=== PATIENT | female | born 1980 | race Caucasian/White ===

== ENCOUNTER 2017-09-23 13:55 | Inpatient (IN) | payer OTHER ==
[~2017-09-23 13:55] MED LIST: AMPICILLIN - 2 GM in SODIUM CHLORIDE 100 ML IVPB ONE
[2017-09-23] MEDS ORDERED: TUBERCULIN PPD 5 TU/0.1ML SYRINGE (IN PATIENT USE ONLY) ID ONE (14:22)
[2017-09-23] MEDS: ELECTROLYTE-148 SOLN 1,000 ML IV SCH ×2 (14:50→19:30)
[2017-09-23 14:57] VITALS: BMI 36.3
[2017-09-23] MEDS ORDERED: CITRIC ACID/SODIUM CITRATE 30 ML UNIT-DOSE CUP PO ONE (15:20)
[2017-09-23 15:42] LABS: BASOPHIL 0.1 % (0-2.0); EOSINOPHIL 0.4 % (0-4.5); MCH 27.7 pg (25.7-33.7); MCHC 34.7 g/dl (32.0-36.0); MEAN CELL VOLUME 79.7 fl (80-96); NEUTROPHILS 79.2 % (42.8-82.8); PLATELET COUNT 143 K/MM3 (134-434); RDW 15.3 % (11.6-15.6); WHITE BLOOD COUNT 10.9 K/mm3 (4.0-10.0)
[2017-09-23 16:02] LABS: ANION GAP 10 (8-16); CALCIUM 8.6 mg/dL (8.5-10.1); CO2 21 mmol/L (21-32); CREATININE 0.8 mg/dL (0.55-1.02); GLUCOSE,RANDOM 92 mg/dL (74-106)
[2017-09-23 16:21] LABS: INR 0.95 (0.82-1.09); PROTHROMBIN TIME (PATIENT) 10.7 SEC (9.98-11.88)
[2017-09-23 16:24] LABS: ACTIVATED PTT 32.1 SECONDS (26.9-34.4)
[2017-09-23] MEDS ORDERED: DEXTROSE 5%-LACTATED RINGERS 1,000 ML IV SCH (16:30)
[2017-09-23 16:31] LABS: HIV 1 & 2 AB NEGATIVE; HIV 1 AGp24 NEGATIVE
[2017-09-23] MEDS ORDERED: AMPICILLIN - 100 ML IVPB ONE (19:45)
--- NOTE | 2017-09-23 20:54 | HP ---
Past Medical History - Admission Chief Complaint: Previous in labor History of Present Illness: 37 yo @ 37 weeks gestation, admitted for repeat due to complaint of labor pain. History Source: Patient Limitations to Obtaining History: No Limitations - Past Medical History ...: 3 ...Para: 1 ...Term: 1 ...: 0 ...Spon : 1 ...Induced : 0 ...Multiple Gestation: 0 ...EDC by Sono: 10/09/17 - Past Surgical History Past Surgical History: Yes: Hx Myomectomy: No Hx Transabdominal Cerclage: No - Smoking History Smoking history: Never smoked Have you smoked in the past 12 months: No - Alcohol/Substance Use Hx Alcohol Use: No History of Substance Use: reports: None - Social History Usual Living Arrangement: Yes: With Spouse History of Recent Travel: No Home Medications - Allergies Allergies/Adverse Reactions: Allergies Allergy/AdvReac Type Severity Reaction Status Date / Time No Known Drug Allergies Allergy Verified 09/23/17 14:58 wheat Allergy Severe Vomiting Uncoded 09/23/17 14:58 - Home Medications Home Medications: Ambulatory Orders Levothyroxine [Synthroid -] 88 mcg PO DAILY 08/05/14 Glyburide/Metformin HCl [Glyburide-Metformin 2.5-500 mg] 2.5 mg PO BID 08/20/17 Vit/Iron Fumarate/FA [ Tablet] 1 each PO DAILY 08/20/17 Review of Systems - Review of Systems Constitutional: reports: No Symptoms Eyes: reports: No Symptoms HENT: reports: No Symptoms Neck: reports: No Symptoms Cardiovascular: reports: No Symptoms Respiratory: reports: No Symptoms Gastrointestinal: reports: No Symptoms Genitourinary: reports: Pain Breasts: reports: No Symptoms Reported Musculoskeletal: reports: No Symptoms Integumentary: reports: No Symptoms Neurological: reports: No Symptoms Endocrine: reports: No Symptoms Hematology/Lymphatic: reports: No Symptoms Psychiatric: reports: No Symptoms Pain Intensity: 5 Physical Exam - Maternity Vital Signs: Vital Signs Temperature 99.0 F 09/23/17 19:41 Pulse Rate 99 H 09/23/17 19:41 Respiratory Rate 20 09/23/17 19:41 Blood Pressure 131/72 09/23/17 19:41 O2 Sat by Pulse Oximetry (%) Constitutional: Yes: Well Nourished Eyes: Yes: Conjunctiva Clear HENT: Yes: Atraumatic Neck: Yes: Supple Cardiovascular: Yes: Regular Rate and Rhythm Lungs: Clear to auscultation - Abdominal Exam/OB Number of Fetuses: Single Presentation: Vertex Contractions: Yes - Vaginal Exam/OB Dilatation (cm): 3-4 Effacement (%): 70 Amniotic Membrane Status: Intact Station: -2 - Physical Exam Psychiatric: Yes: Alert, Oriented - Labs Lab Results: CBC, BMP 09/23/17 14:40 09/23/17 14:40 Problem List - Problems (1) Previous section Code(s): Z98.891 - HISTORY OF UTERINE SCAR FROM PREVIOUS SURGERY (2) Status post repeat low transverse section Code(s): Z98.891 - HISTORY OF UTERINE SCAR FROM PREVIOUS SURGERY (3) Multiparity Code(s): Z64.1 - PROBLEMS RELATED TO MULTIPARITY (4) Sterilization Code(s): Z30.2 - ENCOUNTER FOR STERILIZATION Assessment/Plan Previous in labor Pre op for repeat and sterilization Consent signed Anesthesia to see patient
--- NOTE | 2017-09-23 20:54 | OP ---
Operative Note - Note: Operative Date: 09/23/17 Pre-Operative Diagnosis: Elective / Multiparity Operation: Repeat Low Transverse / Bilateral tubal ligation Findings: Baby girl in LOT position Post-Operative Diagnosis: Same as Pre-op Surgeon: Xiomara Álvarez Sales Broker: Dwayne Obrien Anesthesia: Spinal Specimens Removed: Placenta / Portion of fallopian tubes Estimated Blood Loss (mls): 700
[2017-09-23] MEDS ORDERED: ONDANSETRON 4 MG/2 ML VIAL IVPUSH PRN (21:31)
[2017-09-23] MEDS ORDERED: morphine SULFATE/Preservative Free 0.5 MG/ML (1cc Syringe) SPIN ONE (21:31)
[2017-09-23] MEDS ORDERED: METHYLERGONOVINE MALEATE 0.2 MG/1 ML AMP IM PRN (22:19)
[2017-09-23] MEDS ORDERED: IBUPROFEN 600 MG TABLET (FP) PO PRN (22:19)
[2017-09-23] MEDS ORDERED: IBUPROFEN 800 MG/8 ML IJ IVPB PRN (23:56)
[2017-09-24 08:22] LABS: BASOPHIL 0.2 % (0-2.0); EOSINOPHIL 0.2 % (0-4.5); MCH 27.3 pg (25.7-33.7); MCHC 33.8 g/dl (32.0-36.0); MEAN CELL VOLUME 80.7 fl (80-96); MEAN PLT VOLUME 9.5 fl (7.5-11.1); NEUTROPHILS 82.1 % (42.8-82.8); PLATELET COUNT 113 K/MM3 (134-434); RDW 15.3 % (11.6-15.6); WHITE BLOOD COUNT 11.8 K/mm3 (4.0-10.0)
--- NOTE | 2017-09-24 09:28 | PN ---
Progress Note (short form) - Note Progress Note: ANESTHESIA POD#1 S/P Repeat under Spinal A VSS,no N/V, moving around,some itch is still present. No complications seen, Ana Adan MD.
--- NOTE | 2017-09-24 09:33 | PN ---
Post Progress Note - Subjective Subjective: 37 yo Para 2 status post repeat , seen and evaluated. Doing well, no complaints. Post Day: 1 Type of Delivery: Repeat C/S Vital Signs: Vital Signs Temperature 98.4 F 09/24/17 09:19 Pulse Rate 112 H 09/24/17 09:19 Respiratory Rate 20 09/24/17 09:20 Blood Pressure 131/88 09/24/17 09:19 O2 Sat by Pulse Oximetry (%) 100 09/23/17 23:05 Breast Exam: Yes: Soft Uterus: Yes: Fundus Firm Incision: Yes: Dressing dry and intact Lochia: Yes: Rubra Lochia, amount: Small Extremities: Yes: Calves non-tender Perineum: Yes: Intact Activity: Other (She's lying in bed) - Labs Labs: CBC WBC 11.8 K/mm3 (4.0-10.0) H 09/24/17 07:45 RBC 4.41 M/mm3 (3.60-5.2) 09/24/17 07:45 Hgb 12.0 GM/dL (10.7-15.3) D 09/24/17 07:45 Hct 35.6 % (32.4-45.2) 09/24/17 07:45 MCV 80.7 fl (80-96) 09/24/17 07:45 MCH 27.3 pg (25.7-33.7) 09/24/17 07:45 MCHC 33.8 g/dl (32.0-36.0) 09/24/17 07:45 RDW 15.3 % (11.6-15.6) 09/24/17 07:45 Plt Count 113 K/MM3 (134-434) L D 09/24/17 07:45 MPV 9.5 fl (7.5-11.1) 09/24/17 07:45 Neutrophils % 82.1 % (42.8-82.8) 09/24/17 07:45 Lymphocytes % 11.9 % (8-40) D 09/24/17 07:45 Monocytes % 5.6 % (3.8-10.2) 09/24/17 07:45 Eosinophils % 0.2 % (0-4.5) 09/24/17 07:45 Basophils % 0.2 % (0-2.0) 09/24/17 07:45 Problem List - Problems (1) Previous section Code(s): Z98.891 - HISTORY OF UTERINE SCAR FROM PREVIOUS SURGERY (2) Status post repeat low transverse section Code(s): Z98.891 - HISTORY OF UTERINE SCAR FROM PREVIOUS SURGERY (3) Multiparity Code(s): Z64.1 - PROBLEMS RELATED TO MULTIPARITY (4) Sterilization Code(s): Z30.2 - ENCOUNTER FOR STERILIZATION Assessment/Plan Status post primary Stable Ambulation Analgesia as needed Continue post op care
[2017-09-24] MEDS ORDERED: ACETAMINOPHEN 325 MG TABLET (FP) PO PRN (12:45)
[2017-09-24] MEDS: ACETAMINOPHEN 325 MG TABLET (FP) PO PRN ×2 (16:26→20:19)
[2017-09-24] MEDS: oxyCODONE HCL 5 MG TABLET PO PRN ×2 (16:27→20:19)
[2017-09-24] MEDS: SIMETHICONE 80 MG TAB.CHEW (FP) PO PRN ×2 (16:28→20:19)
[2017-09-24] MEDS: LEVOTHYROXINE NA 75 MCG TABLET (FP) PO SCH (17:08)
[2017-09-24] MEDS: IBUPROFEN 600 MG TABLET (FP) PO PRN (20:22)
[2017-09-24] MEDS ORDERED: BISACODYL 10 MG SUPP.RECT RC PRN (22:19)
[2017-09-25] MEDS: LEVOTHYROXINE NA 75 MCG TABLET (FP) PO SCH (06:43)
[2017-09-25] MEDS: ACETAMINOPHEN 325 MG TABLET (FP) PO PRN ×3 (07:59→20:35)
[2017-09-25] MEDS: SIMETHICONE 80 MG TAB.CHEW (FP) PO PRN ×3 (08:02→20:35)
[2017-09-25] MEDS: IBUPROFEN 600 MG TABLET (FP) PO PRN ×2 (08:05→15:11)
[2017-09-25] MEDS ORDERED: FLU VACCINE QUAD 60 MCG/0.5 ML (MDV 17-18) IM ONE (10:00)
[2017-09-25] MEDS ORDERED: DIPHTH,PERTUSS(ACELL),TET 0.5 ML DISP.SYRIN IM ONE ×2 (10:00)
--- NOTE | 2017-09-25 11:55 | PN ---
Progress Note (SOAP) - Subjective Chief Complaint: Pt doing well - Current Medications Current Medications: Active Medications Acetaminophen (Tylenol -) 650 mg PO Q4H PRN PRN Reason: FEVER OR PAIN Last Admin: 09/25/17 07:59 Dose: 650 mg Acetaminophen (Tylenol -) 325 mg PO Q4H PRN PRN Reason: PAIN LEVEL 1-5 Stop: 09/27/17 12:44 Bisacodyl (Dulcolax Suppository -) 10 mg RC PRN PRN PRN Reason: CONSTIPATION Diphenhydramine HCl (Benadryl Injection -) 25 mg IVPUSH Q4H PRN PRN Reason: Pruritis Last Admin: 09/24/17 06:28 Dose: 25 mg Ibuprofen (Motrin -) 600 mg PO Q4H PRN PRN Reason: PAIN Last Admin: 09/25/17 08:05 Dose: 600 mg Ibuprofen (Caldolor Injection -) 800 mg IVPB Q6H PRN PRN Reason: FEVER Last Admin: 09/24/17 00:08 Dose: 800 mg Levothyroxine Sodium (Synthroid -) 75 mcg PO DAILY@0700 NINI Last Admin: 09/25/17 06:43 Dose: 75 mcg Methylergonovine Maleate (Methergine Injection -) 0.2 mg IM Q4H PRN PRN Reason: Excessive Bleeding (L&D) Oxycodone HCl (Roxicodone -) 5 mg PO Q4H PRN PRN Reason: PAIN LEVEL 1-5 Last Admin: 09/24/17 20:19 Dose: 5 mg Simethicone (Mylicon -) 80 mg PO Q4H PRN PRN Reason: GAS Last Admin: 09/25/17 08:02 Dose: 80 mg - Objective Vital Signs: Vital Signs Temperature 98.8 F 09/25/17 10:00 Pulse Rate 99 H 09/25/17 10:00 Respiratory Rate 16 09/25/17 10:00 Blood Pressure 121/81 09/25/17 10:00 O2 Sat by Pulse Oximetry (%) 100 09/23/17 23:05 Constitutional: Yes: Well Nourished, No Distress Neck: Yes: WNL Cardiovascular: Yes: WNL Respiratory: Yes: WNL Gastrointestinal: Yes: WNL, Normal Bowel Sounds, Soft ....Post : Yes: Uterus firm, Uterus non-tender Extremities: Yes: WNL Edema: No Wound/Incision: Yes: Clean/Dry, Well Approximated Neurological: Yes: WNL, Alert, Oriented Labs Lab Results: CBC, BMP 09/24/17 07:45 09/23/17 14:40 Problem List - Problems (1) Status post repeat low transverse section Code(s): Z98.891 - HISTORY OF UTERINE SCAR FROM PREVIOUS SURGERY Assessment/Plan SP CS for repeat CS POD 2 Plan Continue present management
--- NOTE | 2017-09-25 15:51 | PN ---
Progress Note (short form) - Note Progress Note: Called by nurse to evaluate patient due to oozing from the the incision. Came to evaluate patient; there was some mild oozing on the right side of the incision. Sterile strips removed, wound cleaned with saline solution and sterile strips replaced and pressure dressing applied. Patient tolerated procedure well. Problem List - Problems (1) Previous section Code(s): Z98.891 - HISTORY OF UTERINE SCAR FROM PREVIOUS SURGERY (2) Status post repeat low transverse section Code(s): Z98.891 - HISTORY OF UTERINE SCAR FROM PREVIOUS SURGERY (3) Multiparity Code(s): Z64.1 - PROBLEMS RELATED TO MULTIPARITY (4) Sterilization Code(s): Z30.2 - ENCOUNTER FOR STERILIZATION
[2017-09-25] MEDS: oxyCODONE HCL 5 MG TABLET PO PRN (20:35)
[2017-09-26] MEDS: IBUPROFEN 600 MG TABLET (FP) PO PRN (01:05)
[2017-09-26] MEDS: ACETAMINOPHEN 325 MG TABLET (FP) PO PRN ×4 (01:05→21:08)
[2017-09-26] MEDS: oxyCODONE HCL 5 MG TABLET PO PRN ×4 (01:06→21:07)
[2017-09-26] MEDS: LEVOTHYROXINE NA 75 MCG TABLET (FP) PO SCH (06:02)
--- NOTE | 2017-09-26 07:27 | PN ---
Progress Note (SOAP) - Subjective Chief Complaint: Pt ding well - Current Medications Current Medications: Active Medications Acetaminophen (Tylenol -) 650 mg PO Q4H PRN PRN Reason: FEVER OR PAIN Last Admin: 09/26/17 01:05 Dose: 650 mg Acetaminophen (Tylenol -) 325 mg PO Q4H PRN PRN Reason: PAIN LEVEL 1-5 Stop: 09/27/17 12:44 Bisacodyl (Dulcolax Suppository -) 10 mg RC PRN PRN PRN Reason: CONSTIPATION Diphenhydramine HCl (Benadryl Injection -) 25 mg IVPUSH Q4H PRN PRN Reason: Pruritis Last Admin: 09/24/17 06:28 Dose: 25 mg Ibuprofen (Motrin -) 600 mg PO Q4H PRN PRN Reason: PAIN Last Admin: 09/26/17 01:05 Dose: 600 mg Ibuprofen (Caldolor Injection -) 800 mg IVPB Q6H PRN PRN Reason: FEVER Last Admin: 09/24/17 00:08 Dose: 800 mg Levothyroxine Sodium (Synthroid -) 75 mcg PO DAILY@0700 NINI Last Admin: 09/26/17 06:02 Dose: 75 mcg Methylergonovine Maleate (Methergine Injection -) 0.2 mg IM Q4H PRN PRN Reason: Excessive Bleeding (L&D) Oxycodone HCl (Roxicodone -) 5 mg PO Q4H PRN PRN Reason: PAIN LEVEL 1-5 Last Admin: 09/26/17 01:06 Dose: 5 mg Simethicone (Mylicon -) 80 mg PO Q4H PRN PRN Reason: GAS Last Admin: 09/25/17 20:35 Dose: 80 mg - Objective Vital Signs: Vital Signs Temperature 98.3 F 09/25/17 20:49 Pulse Rate 98 H 09/25/17 20:49 Respiratory Rate 20 09/25/17 20:49 Blood Pressure 121/65 09/25/17 20:49 O2 Sat by Pulse Oximetry (%) 100 09/23/17 23:05 Constitutional: Yes: Well Nourished, No Distress Cardiovascular: Yes: WNL Respiratory: Yes: WNL Gastrointestinal: Yes: WNL, Normal Bowel Sounds, Soft ....Post : Yes: Uterus firm, Uterus non-tender Musculoskeletal: Yes: WNL Extremities: Yes: WNL Wound/Incision: Yes: Clean/Dry, Well Approximated, Open to air Neurological: Yes: WNL, Alert, Oriented Labs Lab Results: CBC, BMP 09/24/17 07:45 09/23/17 14:40 Problem List - Problems (1) Status post repeat low transverse section Code(s): Z98.891 - HISTORY OF UTERINE SCAR FROM PREVIOUS SURGERY Assessment/Plan SP CS for repeat CS POD 3 Plan Continue present management
[2017-09-26] MEDS: SIMETHICONE 80 MG TAB.CHEW (FP) PO PRN ×3 (08:30→21:07)
[2017-09-26 08:46] LABS: BASOPHIL 0.2 % (0-2.0); EOSINOPHIL 1.5 % (0-4.5); MCH 27.3 pg (25.7-33.7); MCHC 33.8 g/dl (32.0-36.0); MEAN CELL VOLUME 80.8 fl (80-96); MEAN PLT VOLUME 9.1 fl (7.5-11.1); NEUTROPHILS 74.9 % (42.8-82.8); PLATELET COUNT 155 K/MM3 (134-434); RDW 15.8 % (11.6-15.6); WHITE BLOOD COUNT 8.5 K/mm3 (4.0-10.0)
[2017-09-26] MEDS ORDERED: diphenhydrAMINE HCL 25 MG CAPSULE (FP) PO ONE ×2 (12:03→12:45)
[2017-09-26] MEDS: HYDROCORTISONE 1% TOPICAL CREAM 30 GM TUBE TP SCH (21:38)
[2017-09-27] MEDS: SIMETHICONE 80 MG TAB.CHEW (FP) PO PRN (01:53)
[2017-09-27] MEDS: oxyCODONE HCL 5 MG TABLET PO PRN (01:53)
[2017-09-27] MEDS: IBUPROFEN 600 MG TABLET (FP) PO PRN (01:57)
[2017-09-27] MEDS: LEVOTHYROXINE NA 75 MCG TABLET (FP) PO SCH (06:08)
--- NOTE | 2017-09-27 08:50 | DS ---
Physical Exam-SPEEDER OPERATOR Vital Signs: Vital Signs Temperature 98.1 F 09/26/17 22:00 Pulse Rate 106 H 09/26/17 22:00 Respiratory Rate 18 09/26/17 22:00 Blood Pressure 107/63 09/26/17 22:00 O2 Sat by Pulse Oximetry (%) 100 09/23/17 23:05 Constitutional: Yes: Well Nourished Eyes: Yes: Conjunctiva Clear HENT: Yes: Atraumatic Neck: Yes: Supple Cardiovascular: Yes: Regular Rate and Rhythm Respiratory: Yes: Regular, CTA Bilaterally Gastrointestinal: Yes: Normal Bowel Sounds Pelvis: Yes: WNL External Genitalia: Yes: Normal Vaginal Exam: Yes: Normal Cervix: Yes: Normal Uterus: Yes: Firm Breast(s): Yes: WNL Wound/Incision: Yes: Clean/Dry, Steri Strips (in place). No: Bleeding Neurological: Yes: Alert, Oriented ...Motor Strength: WNL Psychiatric: Yes: Alert, Oriented Labs: CBC, BMP 09/26/17 07:00 09/23/17 14:40 Delivery - Delivery Type of Anesthesia: Spinal Episiotomy/Laceration: None EBL (cc): 700 Delivery, Single - Stages of Labor Date 1st Stage Initiatied: 09/23/17 Time 1st Stage Initiated: 13:00 Date of Delivery: 09/23/17 Time of Delivery: 21:16 Time Placenta Delivered: 21:17 - Condition of Press Writer/V/Stol Landing Signal Officer Present: Yes Name: Jose Powell Infant Gender: Female Weight: 8 lb 9 oz Position: Left, OT Total Hours ROM (Hrs/Mins): 2min - 1 Minute Total Score: 9 5 Minutes Total Score: 9 - [place] Feeding Plan Initial Plan: Elected not to breastfeed exclusively throughout hospitalization Discharge Summary Reason For Visit: ADMIT PREVIOUS CSECTION Current Active Problems Multiparity (Acute) Previous section (Acute) Status post repeat low transverse section (Acute) Sterilization (Acute) Procedures: Principal: Repeat Low transverse Hospital Course: 37 yo Para 2 status post repeat admitted for post op care. While in hospital dressing was changed because of oozing and hydrocortizone cream was prescribed for skin itch. Condition: Good - Instructions Diet, Activity, Other Instructions: Regular diet No driving, no lifting x 4 weeks F/U with in 1 week Disposition: HOME - Home Medications Comprehensive Discharge Medication List: Ambulatory Orders Levothyroxine [Synthroid -] 88 mcg PO DAILY 08/05/14 Glyburide/Metformin HCl [Glyburide-Metformin 2.5-500 mg] 2.5 mg PO BID 08/20/17 Vit/Iron Fumarate/FA [ Tablet] 1 each PO DAILY 08/20/17
[2017-09-27 09:00] VITALS: BP 119/74; PULSE 74; TEMP 98.4
[2017-09-27] MEDS: HYDROCORTISONE 1% TOPICAL CREAM 30 GM TUBE TP SCH (10:27)
--- NOTE | 2017-09-30 17:41 | PATH ---
Surgical Pathology Report Patient Name: SUMIT FIGUEROA [facility]. Rec. #: [id number] /Age/Gender: 1980 (Age: 37) / F Account: [id number] Location: [facility] OBS/WELLNESS CONSULTANT Taken: 09/23/2017 Received: 09/24/2017 Reported: 09/30/2017 Physicians: Xiomara Álvarez M.D. 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 PLACENTA, : MATURE THIRD TRIMESTER PLACENTA WITH TRIVESSEL UMBILICAL CORD. MILD ACUTE CHORIOAMNIONITIS. B. PORTION OF RIGHT FALLOPIAN TUBE, TUBAL LIGATION: COMPLETE CROSS SECTION OF FALLOPIAN TUBE. C. PORTION OF LEFT FALLOPIAN TUBE, TUBAL LIGATION: COMPLETE CROSS SECTION OF FALLOPIAN TUBE. Electronically Signed Jia Khalil M.D. Gross Description A. The specimen is received fresh labeled placenta and is a 806 gram, 23.0 x 16.5 x 2.8 cm. placenta with attached membranes and umbilical cord. The attached membranes are rainey, translucent with focal opacities and insert marginally. The umbilical cord measures 45 cm. in length and averages 1.6 cm. in diameter. The cord inserts eccentrically, 3.5 cm. to the nearest margin. No true knots or strictures are identified. Cut surface of the umbilical cord reveals 3 vessels. The surface is hills-blue with minimal fibrin deposition and appropriate caliber vessels. The maternal surface is red-brown with focal defects. Sectioning reveals red-brown, spongy parenchyma. No lesions are identified. Magnetometer Operator sections are submitted in three cassettes as follows: 1- membrane rolls and umbilical cord; 2-3- full thickness sections of placenta. B. received in formalin labeled "portion of right fallopian tube," is a 1 cm in length portion of fallopian tube. No fimbria are present. The outer surface is rainey-grady and smooth. Sectioning reveals an unremarkable lumen. Magnetometer Operator sections are submitted in one cassette. C. Received in formalin labeled "portion of left fallopian tube," is a 0.8 cm in length portion of fallopian tube. No fimbria are present. The outer surface is rainey hills and smooth. Sectioning reveals an unremarkable lumen. Magnetometer Operator sections are submitted in one cassette. 09/26/201709/26/2017
== END 2017-09-27 11:50 | disposition home or self-care (01) | DRG 540 ==
LOC: JDEL 13:55 → JLDR 13:56 → J3W 23:49
PROVIDERS: ADMIT Obstetrics & Gynecology; ATTEND Obstetrics & Gynecology
PROC: 10D00Z1 Extraction of Products of Conception, Low, Open Approach (ICD-10-PCS; principal; 2017-09-23)
PROC: 0U570ZZ Destruction of Bilateral Fallopian Tubes, Open Approach (ICD-10-PCS; 2017-09-23)
DX: O24.415 Gestational diabetes mellitus in pregnancy, controlled by oral hypoglycemic drugs (principal); O34.211 Maternal care for low transverse scar from previous cesarean delivery; Z3A.37 37 weeks gestation of pregnancy; Z37.0 Single live birth; Z30.2 Encounter for sterilization
CPT/HCPCS: 36415; 80048; 85025; 85610; 85730; 86593; 86850; 86900; 86901; 87389; 88302-TC; 88307-TC; 90688; 90715; G0008

== ENCOUNTER 2019-07-20 11:12 | Day surgery (SDC) | payer OTHER ==
[2019-07-14 13:30] VITALS: BMI 32.1
[2019-07-20] MEDS ORDERED: MIDAZOLAM HCL 2 MG/2 ML SINGLE DOSE VIAL ONE (12:29)
[2019-07-20] MEDS ORDERED: DEXAMETHASONE SOD PHOSPHATE/PF 10 MG/ML SDV ONE (12:29)
[2019-07-20] MEDS ORDERED: ROPIVACAINE HCL 0.5% 30ML VIAL ONE (12:29)
[2019-07-20] MEDS ORDERED: PROPOFOL 20 ML ONE ×2 (12:53→13:27)
[2019-07-20] MEDS ORDERED: EPINEPHrine 1:1,000 1 MG/1 ML - 30ML VIAL (INJECTION) ONE (14:33)
[2019-07-20] MEDS ORDERED: ceFAZolin SODIUM 1 GM VIAL ONE (14:38)
[2019-07-20] MEDS ORDERED: oxyCODONE HCL 5 MG TABLET PO PRN ×3 (16:14→16:41)
[2019-07-20] MEDS ORDERED: PROMETHAZINE HCL 25 MG/1 ML VIAL IVPUSH PRN (16:14)
[2019-07-20] MEDS ORDERED: ONDANSETRON 4 MG/2 ML VIAL IVPUSH PRN (16:14)
--- NOTE | 2019-07-20 16:50 | OPR ---
Date of Procedure: 07/20/2019 Procedure: Left Shoulder- 1. Diagnostic arthroscopy. 2. Arthroscopic limited debridement of glenohumeral joint (18553). 3. Arthroscopic subacromial decompression (55031). 4. Distal clavicle resection (09074, append 51 modifier). Preoperative Diagnoses: 1. AC joint arthrosis. 2. Glenohumeral synovitis. 3. Subacromial bursitis. 4. Biceps tendonitis Postoperative Diagnoses: 1. AC joint arthrosis 2. Labral degeneration and fraying; SLAP tear. 4. Glenohumeral synovitis. 6. Subacromial bursitis and adhesions. Surgeon: Lawrence Dalton DO Assistants: Adams Zarate DO Anesthesia: General anesthesia, IV regional with interscalene nerve block Estimated Blood Loss: Minimal Drains: None Total IV Fluids: Per anesthesia record Specimens: None Implants: None Complications: None Disposition: PACU Condition: Hemodynamically stable Indications: Shereen Marte presented to us with chronic left shoulder pain that failed conservative measures, including regular use of ibuprofen, a cortisone injection, and multiple courses of physical therapy. Her symptoms, signs, and imaging were consistent with the above noted diagnoses. She ultimately elected to proceed with surgical intervention after discussion of the risks, benefits, alternatives. We discussed risks including but not limited to, bleeding, pain, infection, scarring, damage to neurovascular structures, blood clots, pulmonary embolus, need for additional surgery, incomplete relief of pain, and incomplete return of function. She expressed understanding and wished to proceed. She underwent preoperative medical evaluation clearance and optimization prior to surgery. Procedure Details: The patient was identified in the preoperative area. The left shoulder was marked as the operative site and consent was completed and confirmed. She was later transferred to the operating room and placed in supine position the operating room. General anesthesia was induced without difficulty. She was repositioned into beach chair with all bony prominences appropriately padded. The neck was in neutral alignment. A surgical time-out was performed identifying the correct patient, procedure, and site. Antibiotics were given within 1 hour prior to surgical incision. The upper extremity was prepped and draped in standard sterile fashion. Examination under anesthesia: Passive range of motion of the left shoulder showed forward elevation of 170, abduction 100, external rotation at side 60 , SABER 90, SABIR 40. This was compared to her contralateral shoulder which shows forward elevation of 170, abduction 100 external rotation at side 60, SABER 90, SABIR 40, and internal rotation to her mid thoracic spine. Diagnostic arthroscopy: We began the procedure with the standard posterolateral portal, entered the glenohumeral joint, and an anterior portal was made within the rotator cuff interval under direct visualization with the assistance of a spinal needle. A probe was used to assist with diagnostic arthroscopy and we visualized from both posteriorly and anteriorly. Evaluation of the glenohumeral joint showed mild to moderate synovitis anteriorly. The superior labrum had a degenerative tear that was debrided back to a stable base. The anterior labrum was probed and found to be frayed, but intact. The posterior labrum was probed and found to be intact. There were no loose bodies in the inferior pouch. There was no HAGL lesion. The biceps tendon was normal. The rotator cuff interval was normal. The axillary recess was empty. The subscapularis was probed and found to be intact. The articular surface of the supraspinatus was intact. The articular surface of the infraspinatus and teres minor tendons were intact. The glenoid and humeral head showed no significant chondral defects. Evaluation of the subacromial space showed moderate bursitis and adhesions. There was a small acromial spur and calcific body anteriorly. There was fraying of the CA ligament. The AC joint was intact with spurring and loss of the joint space. The rotator cuff was found to be intact. Arthroscopic limited debridement of the glenohumeral joint: We used a combination of the arthroscopic motorized shaver and radiofrequency device to perform a debridement inside the glenohumeral joint. The synovitis of the joint and joint capsule was debrided anteriorly. Synovitic fronds were thermally ablated. Labral fraying and degeneration was also resected and debrided to a stable edge. Arthroscopic subacromial decompression:The subacromial space was entered from posteriorly. A separate anterior-lateral portal was made for additional instrumentation and visualization. We then visualized the rotator cuff pattern as noted above, and performed our subacromial decompression in a systematic fashion from anterior to posterior and from lateral to medial, removing the bursal tissue carefully. This was done with a radiofrequency device and motorized shaver. The undersurface of the acromion was skeletonized and gently debrided to a flat smooth undersurface. There was a small anterior-inferior spur that was resected with a motorized bur. There was a small calcific loose body at the anterior aspect of the acromion which was excised. Arthroscopic AC joint resection: The AC joint space was narrowed, with arthritic changes including kay-articular spurs and sclerosis. We used the anterior and lateral portals for instrumentation. Soft tissue within the AC joint was removed with a motorized shaver and radiofrequency device. We resected the joint by using a barrel jaja 4 mm in diameter. 2-3 mm of the medial aspect of the acromion was burred to a flat surface and about 6-7 mm of the lateral end of the clavicle was similarly resected with the jaja. The surrounding osteophytes were also resected. The AC joint was stable upon completion of the distal clavicleexcision. Approximately 1 cm of space was present between the acromion and clavicle after the resection. Wound closure: The arthroscopic portal incisions were closed with 3-0 Monocryl subcuticular stitch with Steri strips. The shoulder was sterilely dressed, and placed in a shoulder immobilizer. Post-operative Details: I spoke with the family regarding the operation after surgery. Postoperative rehabilitation: Arthroscopic subacromial decompression protocol. She will remain in a sling for 1-2 weeks. Early passive range of motion okay with no limits and advance as tolerated. No strengthening until full painless range of motion restored. Attestation for first grade teacher: Dr. Adams Zarate DO acted as the first grade teacher. There was no qualified resident or physician customer support assistant available to do so.
[2019-07-20 17:09] VITALS: TEMP 97.7
[2019-07-20 17:44] VITALS: BP 125/70; PULSE 96
--- NOTE | 2019-07-24 12:51 | PATH ---
Surgical Pathology Report Patient Name: SUMIT FIGUEROA Med. Rec. #: [id number] /Age/Gender: 1980 (Age: 39) / F Account: [id number] Location: [facility] Taken: 07/20/2019 Received: 07/21/2019 Reported: 07/24/2019 Physicians: Lawrence Dalton DO Specimen(s) Received A: SHAVINGS LEFT SHOULDER B: LEFT SHOULDER LOOSE BODY Clinical History Left shoulder distal clavicle resection with debridement Final Diagnosis A. LEFT SHOULDER SHAVINGS: FEW FRAGMENTS OF FIBROCARTILAGINOUS TISSUE AND SKELETAL MUSCLE WITH NO SIGNIFICANT PATHOLOGIC CHANGE. B. LEFT SHOULDER, LOOSE BODY, EXCISION: PORTION OF BONE WITH TRILINEAGE HEMATOPOIETIC MARROW. SEE COMMENT. Comment: This may represent a loose body in the proper clinical setting. Electronically Signed Dariel Arteaga M.D. Gross Description A. Received in formalin, labeled "left shoulder shavings" is scant possible tissue measuring < 1 mm. the contents of the container are strained and the possible tissue fragment. Entirely submitted in one cassette. Note: tissue may fail to process. B. Received in formalin, labeled "left shoulder loose body" is a 0.8 x 0.4 x 0.3 cm portion of bony tissue. The specimen is decalcified and entirely submitted in one cassette. AE/07/23/2019 ebram/07/23/2019
== END 2019-07-20 17:45 | disposition home or self-care (01) ==
LOC: FASU 11:12
PROVIDERS: ATTEND Orthopaedic Surgery
PROC: 0RNK4ZZ Release Left Shoulder Joint, Percutaneous Endoscopic Approach (ICD-10-PCS; 2019-07-20)
PROC: 0PBB4ZZ Excision of Left Clavicle, Percutaneous Endoscopic Approach (ICD-10-PCS; principal; 2019-07-20 14:56)
DX: M19.012 Primary osteoarthritis, left shoulder (principal); S43.432A Superior glenoid labrum lesion of left shoulder, initial encounter; X58.XXXA Exposure to other specified factors, initial encounter; Y93.9 Activity, unspecified; Y92.9 Unspecified place or not applicable; M65.812 Other synovitis and tenosynovitis, left shoulder; M75.52 Bursitis of left shoulder; M75.02 Adhesive capsulitis of left shoulder
CPT/HCPCS: 84703; 88304-TC; 94760

== ENCOUNTER 2020-06-17 06:36 | Day surgery (SDC) | payer OTHER ==
[2020-05-30 14:43] VITALS: BMI 32.3
[~2020-06-17 06:36] MED LIST changes: -AMPICILLIN - 2 GM in SODIUM CHLORIDE 100 ML IVPB ONE; +BUPIVACAINE HCL/PF 0.25% (2.5MG/ML) 10 ML VIAL IJ ONE
[2020-06-17] MEDS ORDERED: SODIUM CHLORIDE 0.9% P/F 10 ML VIAL IJ ONE (06:57)
[2020-06-17] MEDS ORDERED: ceFAZolin SODIUM 1 GM VIAL ONE (06:57)
[2020-06-17] MEDS ORDERED: PROPOFOL 20 ML ONE (06:58)
[2020-06-17] MEDS ORDERED: DEXAMETHASONE SOD PHOSPHATE 4 MG/1 ML VIAL ONE ×2 (07:01→08:53)
[2020-06-17] MEDS ORDERED: SUCCINYLCHOLINE CHLORIDE 200 MG/10 ML SYRINGE ONE (07:03)
[2020-06-17] MEDS ORDERED: EPHEDRINE SULFATE/0.9% NACL/PF 50 MG/10 ML SYRINGE NR ONE (07:03)
--- NOTE | 2020-06-17 07:20 | HP ---
History & Physical Update - History History: Change (see notes) (Ear infection resolved) - Physical Physical: No Change - Assessment Assessment: No Change - Plan Plan: No Change
[2020-06-17] MEDS ORDERED: oxyCODONE HCL 5 MG TABLET PO PRN ×3 (07:25→08:16)
[2020-06-17] MEDS ORDERED: ONDANSETRON 4 MG/2 ML VIAL IVPUSH PRN (07:25)
[2020-06-17] MEDS ORDERED: LACTATED RINGERS SOLUTION 1,000 ML IV SCH (07:30)
[2020-06-17] MEDS ORDERED: ACETAMINOPHEN 325 MG TABLET (FP) PO PRN (08:16)
[2020-06-17] MEDS ORDERED: MIDAZOLAM HCL 2 MG/2 ML SINGLE DOSE VIAL ONE (08:20)
[2020-06-17] MEDS ORDERED: ROPIVACAINE HCL 0.5% 30ML VIAL ONE (08:20)
[2020-06-17] MEDS ORDERED: EPINEPHrine 1:1,000 1 MG/1 ML - 30ML VIAL (INJECTION) ONE (08:24)
[2020-06-17] MEDS ORDERED: BUPIVACAINE HCL/PF 0.25% (2.5MG/ML) 10 ML VIAL ONE ×2 (08:32→10:33)
[2020-06-17] MEDS ORDERED: METOPROLOL TARTRATE 5 MG/5 ML VIAL ONE (08:55)
[2020-06-17] MEDS ORDERED: PHENYLEPHRINE HCL 10 MG/1 ML SINGLE DOSE VIAL ONE (09:03)
[2020-06-17] MEDS ORDERED: KETOROLAC TROMETHAMINE 30 MG/1 ML VIAL ONE (09:22)
[2020-06-17] MEDS ORDERED: ONDANSETRON 4 MG/2 ML VIAL ONE (09:22)
[2020-06-17] MEDS ORDERED: BUPIVACAINE HCL/PF 0.25% (2.5MG/ML) 10 ML VIAL IJ ONE ×2 (09:35)
--- NOTE | 2020-06-17 10:58 | OPR ---
Procedure: Left Shoulder- 1. Diagnostic arthroscopy. 2. Arthroscopic limited debridement of glenohumeral joint (86092). 3. Arthroscopic subacromial decompression (84757). 4. Arthroscopic-assisted biceps tenodesis-subpectoral (17086). 5. Distal clavicle resection (13878, append 51 modifier). Preoperative Diagnoses: Left Shoulder- 1. Biceps tendon degeneration. 2. Glenohumeral synovitis. 3. Subacromial bursitis. 4. AC joint arthropathy. Postoperative Diagnoses: Left Shoulder- 1. Rotator cuff partial tear/fraying-Supraspinatus. 2. Biceps tendon degeneration and tenosynovitis. 3. Glenohumeral synovitis. 4. Subacromial bursitis and adhesions. 5. AC joint arthropathy. Surgeon: Lawrence Dalton DO Assistants: Adams Zarate DO Anesthesia: IV regional with interscalene nerve block, Local infiltration analgesic with Bupivacaine. Estimated Blood Loss: Minimal Drains: None Total IV Fluids: Per anesthesia record Specimens: None Implants: [employer] 1.9mm SutureFix [place], Double loaded with Suture Complications: None Disposition: PACU Condition: Hemodynamically stable Indications: Shereen Marte presented to us with chronic left shoulder pain that failed conservative measures and a prior arthroscopic surgery. Her symptoms, signs, and imaging were consistent with the above noted diagnoses. She ultimately elected to proceed with surgical intervention after discussion of the risks, benefits, alternatives. We discussed risks including but not limited to, bleeding, pain, infection, scarring, damage to neurovascular structures, blood clots, pulmonary embolus, need for additional surgery, incomplete relief of pain, and incomplete return of function. She expressed understanding and wished to proceed. She underwent preoperative medical evaluation clearance and optimization prior to surgery. Procedure Details: She was identified in the preoperative area. The left shoulder was marked as the operative site and consent was completed and confirmed. An interscalene block was performed in the preoperative holding area by a member of the anesthesia team. She was later transferred to the operating room and placed in supine position the operating room. Anesthesia was induced without difficulty. She was repositioned into beach chair with all bony prominences appropriately padded. The neck was in neutral alignment. A surgical time-out was performed identifying the correct patient, procedure, and site. Antibiotics were given within 1 hour prior to surgical incision. The upper extremity was prepped and draped in standard sterile fashion. Examination under anesthesia: Passive range of motion of the left shoulder showed forward elevation of 170, abduction 100, external rotation at side 60, SABER 90, SABIR 40. This was compared to her contralateral shoulder which shows forward elevation of 170, abduction 100 external rotation at side 40, SABER 90, SABIR 40, and internal rotation to her mid thoracic spine. Diagnostic arthroscopy: We began the procedure with the standard posterolateral portal, entered the glenohumeral joint, and an anterior portal was made within t he rotator cuff interval under direct visualization with the assistance of a spinal needle. A probe was used to assist with diagnostic arthroscopy and we visualized from both posteriorly and anteriorly. Evaluation of the glenohumeral joint showed mild to moderate synovitis anteriorly and superiorly. The superior labrum was probed and found to be intact frayed and torn from the superior glenoid, consistent with a grade II SLAP tear. The anterior labrum was probed and found to be intact. The posterior labrum was probed and found to be intact. There were no loose bodies in the inferior pouch. There was no HAGL lesion. The biceps tendon showed hyperemia. The rotator cuff interval showed hyperemia. The axillary recess was empty. The subscapularis was probed and found to be intact. The articular surface of the supraspinatus was frayed. The articular surface of the infraspinatus and teres minor tendons were intact. The glenoid and humeral head showed no significant chondral defects. There was a small areas of grade I chondromalacia noted on the humeral head. We used a combination of the arthroscopic motorized shaver and radiofrequency device to perform an debridement inside the glenohumeral joint anteriorly. The hyperemia, erythema, and synovitis of the joint and joint capsule was debrided. Synovitic fronds were thermally ablated. The biceps tendon was tenotomized as it inserted into the superior labral complex and the remaining portion of the biceps tendon was allowed to retract into the bicipital groove for later tenodesis. Evaluation of the subacromial space showed moderate bursitis and adhesions. There was no acromial spur anteriorly. There was fraying of the CA ligament. The AC joint was showed areas of new heterotopic bone formation and sclerosis. The bursal surface of the rotator cuff was found to be intact. Arthroscopic-assisted biceps tenodesis: We made a 2 cm incision along Himanshu's lines in the axillary fold. Sharp dissection was carried out down to the level of the pectoralis major. The plane between the pectoralis major and the short head of biceps tendon was developed bluntly down to the level of the humeral bone, where we identified the long head of biceps tendon and delivered it retrograde out of the wound. The underlying soft tissue was resected and the bone was frayed with a 1/4-inch osteotome. We then selected a 1.9 SutureFix anchor and placed the anchor high within the bicipital groove underneath the pectoralis major tendon. The sutures were then passed just proximal to the musculotendinous junction of the long head of biceps in an alternating simple versus lasso loop configuration. Tying these sutures down tenodesed the tendon onto the underlying frayed humeral bone. We used an arthroscopic knot pusher to get excellent knot fixation, and then arthroscopic cutter hot knife to cut the remaining length of the suture. The remaining length of the biceps tendon was resected. We confirmed our arthroscopic knots and position of the biceps tendon underneath the pectoralis major with the arthroscope. We thoroughly irrigated the wound. Arthroscopic subacromial decompression:The subacromial space was entered from posteriorly. A separate anterior-lateral portal was made for additional instrumentation and visualization. We then performed our subacromial decompression in a systematic fashion from anterior to posterior and from latera l to medial, removing the bursal tissue carefully. This was done with a radiofrequency device and motorized shaver. The undersurface of the acromion was skeletonized and gently debrided to a flat smooth undersurface. There was a no significant anterior inferior acromial spur. Arthroscopic AC joint resection: The AC joint space was narrowed superiorly, with kay-articular heterotopic bone formation and sclerosis . We used the anterior and lateral portals for instrumentation. Soft tissue within the AC joint was removed with a motorized shaver and radiofrequency device. We resected the joint by using a barrel jaja 4 mm in diameter. 2-3 mm of the medial aspect of the acromion was burred to a flat surface and about 6-7 mm of the lateral end of the clavicle was similarly resected with the jaja. The surrounding osteophytes were also resected. The AC joint was stable upon completion of the distal clavicle excision. Approximately 1 cm of space was present between the acromion and clavicle after the resection. We thoroughly irrigated the subacromial space and we removed the arthroscopic equipment. Wound closure: The wounds were thoroughly irrigated. The arthroscopic portal incisions were closed with 3-0 Monocryl subcuticular stitch with Steri strips. The axillary incision was closed with 2-0 Vicryl, 3-0 Monocryl subcuticular stitch, and Dermabond skin glue. The shoulder was sterilely dressed and placed in a shoulder immobilizer. Post-operative Details: I spoke with the family regarding the operation after surgery. Postoperative rehabilitation: Arthroscopic biceps tenodesis protocol. She will remain in a sling for 4-6 weeks. Early passive range of motion okay with no limits. Attestation for dietary assistant: Dr. Adams Zarate acted as the dietary assistant. There was no qualified resident or physician respiratory therapy assistant available to do so. I was present for surgical time out and all trujillo and critical portions of the case.
[2020-06-17 13:55] VITALS: BP 109/76; PULSE 100; TEMP 98
--- NOTE | 2020-06-21 16:15 | PATH ---
Surgical Pathology Report Patient Name: SUMIT FIGUEROA Med. Rec. #: [id number] /Age/Gender: 1980 (Age: 39) / F Account: [id number] [facility] Taken: 06/17/2020 Received: 06/17/2020 Reported: 06/21/2020 Physicians: Lawrence Dalton DO Specimen(s) Received A: LEFT SHOULDER SHAVINGS B: LEFT BICEP TENDON Clinical History Left shoulder bursitis/biceps tendinitis Final Diagnosis A. LEFT SHOULDER SHAVINGS: PORTIONS OF SYNOVIAL TISSUE WITH FOCAL REACTIVE CHANGE. SEPARATE SKELETAL MUSCLE WITH NO SIGNIFICANT PATHOLOGIC CHANGE. B. LEFT BICEP TENDON, RESECTION TENDINOUS TISSUE WITH FOCAL DEGENERATIVE CHANGE. Electronically Signed Dariel Arteaga M.D. Gross Description A. Received in formalin labeled "left shoulder shavings," is a 2.5 x 1.5 x 0.3 cm aggregate of rainey-yellow soft tissue fragments. The formalin is filtered and the specimen is entirely submitted in one cassette. B. Received in formalin labeled "left biceps tendon," is a 5.0 x 0.5 x 0.3 cm rainey-brown portion of fibrous tissue, consistent with a portion of tendon. [employer] sections are submitted in one cassette. /06/17/2020 saudi06/17/2020
== END 2020-06-17 13:50 | disposition home or self-care (01) ==
LOC: FASU 06:36
PROVIDERS: ATTEND Orthopaedic Surgery
PROC: 0LS44ZZ Reposition Left Upper Arm Tendon, Percutaneous Endoscopic Approach (ICD-10-PCS; 2020-06-17)
PROC: 0LS40ZZ Reposition Left Upper Arm Tendon, Open Approach (ICD-10-PCS; 2020-06-17)
PROC: 0PBB4ZZ Excision of Left Clavicle, Percutaneous Endoscopic Approach (ICD-10-PCS; principal; 2020-06-17 09:10)
PROC: 0RBK4ZZ Excision of Left Shoulder Joint, Percutaneous Endoscopic Approach (ICD-10-PCS; 2020-06-17 09:10)
DX: M75.112 Incomplete rotator cuff tear or rupture of left shoulder, not specified as traumatic (principal); M67.813 Other specified disorders of tendon, right shoulder; M65.812 Other synovitis and tenosynovitis, left shoulder; M75.52 Bursitis of left shoulder; M12.812 Other specific arthropathies, not elsewhere classified, left shoulder; S43.432A Superior glenoid labrum lesion of left shoulder, initial encounter; X58.XXXA Exposure to other specified factors, initial encounter; Y93.9 Activity, unspecified; Y92.9 Unspecified place or not applicable
CPT/HCPCS: 84703; 88304-TC; 94760

== ENCOUNTER 2021-05-05 05:51 | Day surgery (SDC) | payer OTHER ==
[2021-05-01 12:29] VITALS: BMI 34.7
[2021-05-05] MEDS ORDERED: BUPIVACAINE HCL/EPINEPHRINE/PF 30 ML VIAL IJ ONE (07:13)
[2021-05-05] MEDS ORDERED: MIDAZOLAM HCL 2 MG/2 ML SINGLE DOSE VIAL ONE ×3 (07:29→08:08)
[2021-05-05] MEDS ORDERED: PROPOFOL 20 ML ONE ×3 (07:42→09:01)
[2021-05-05] MEDS ORDERED: PROMETHAZINE HCL 25 MG/1 ML VIAL IVPUSH PRN (11:12)
[2021-05-05] MEDS ORDERED: ONDANSETRON 4 MG/2 ML VIAL IVPUSH PRN (11:12)
[2021-05-05] MEDS ORDERED: oxyCODONE HCL 5 MG TABLET PO PRN (11:12)
[2021-05-05 11:41] VITALS: TEMP 97.3
[2021-05-05 12:26] VITALS: BP 124/76; PULSE 94
== END 2021-05-05 12:55 | disposition home or self-care (01) ==
LOC: FASU 05:51
PROVIDERS: ATTEND Orthopaedic Surgery
PROC: 0PB94ZZ Excision of Right Clavicle, Percutaneous Endoscopic Approach (ICD-10-PCS; principal; 2021-05-05 08:18)
PROC: 0RBJ4ZZ Excision of Right Shoulder Joint, Percutaneous Endoscopic Approach (ICD-10-PCS; 2021-05-05 08:18)
PROC: 0LS30ZZ Reposition Right Upper Arm Tendon, Open Approach (ICD-10-PCS; 2021-05-05 08:18)
DX: M75.111 Incomplete rotator cuff tear or rupture of right shoulder, not specified as traumatic (principal); M75.21 Bicipital tendinitis, right shoulder; M65.811 Other synovitis and tenosynovitis, right shoulder; M75.01 Adhesive capsulitis of right shoulder; M12.811 Other specific arthropathies, not elsewhere classified, right shoulder
CPT/HCPCS: 81025; 88304-TC; 94760

== ENCOUNTER 2022-08-24 09:09 | Day surgery (SDC) | payer OTHER ==
[2022-08-21 12:35] VITALS: BMI 36.3
[2022-08-24] MEDS ORDERED: PROPOFOL 20 ML ONE (11:35)
[2022-08-24] MEDS ORDERED: MIDAZOLAM HCL 2 MG/2 ML SINGLE DOSE VIAL ONE (11:35)
[2022-08-24] MEDS ORDERED: BUPIVACAINE HCL/EPINEPHRINE/PF 30 ML VIAL IJ ONE (11:47)
[2022-08-24] MEDS ORDERED: ONDANSETRON 4 MG/2 ML VIAL ONE ×2 (12:02→14:30)
[2022-08-24] MEDS ORDERED: KETOROLAC TROMETHAMINE 30 MG/1 ML VIAL ONE (12:02)
[2022-08-24] MEDS ORDERED: ceFAZolin SODIUM 1 GM VIAL ONE (12:02)
[2022-08-24] MEDS ORDERED: DEXAMETHASONE SOD PHOSPHATE 4 MG/1 ML VIAL ONE (12:02)
[2022-08-24] MEDS ORDERED: FENTANYL CITRATE/PF 50 MCG/ML VIAL ONE ×2 (14:05→14:29)
[2022-08-24] MEDS ORDERED: oxyCODONE HCL 5 MG TABLET PO PRN ×2 (14:18)
[2022-08-24] MEDS ORDERED: ONDANSETRON 4 MG/2 ML VIAL IVPUSH PRN (14:18)
[2022-08-24] MEDS ORDERED: PROMETHAZINE HCL 25 MG/1 ML VIAL IVPUSH PRN (14:18)
[2022-08-24 14:57] VITALS: TEMP 98
[2022-08-24] MEDS ORDERED: oxyCODONE HCL 5 MG TABLET ONE (14:57)
[2022-08-24 15:02] VITALS: RESP 18
[2022-08-24 15:48] VITALS: BP 118/83; PULSE 74
== END 2022-08-24 15:45 | disposition home or self-care (01) ==
LOC: FASU 09:09
PROVIDERS: ATTEND Orthopaedic Surgery
PROC: 0LQ30ZZ Repair Right Upper Arm Tendon, Open Approach (ICD-10-PCS; 2022-08-24)
PROC: 0RBL0ZZ Excision of Right Elbow Joint, Open Approach (ICD-10-PCS; principal; 2022-08-24 11:00)
DX: M77.11 Lateral epicondylitis, right elbow (principal); M65.821 Other synovitis and tenosynovitis, right upper arm
CPT/HCPCS: 24102; 24359; C1713; 84703; 94760

== ENCOUNTER 2023-01-18 07:53 | Day surgery (SDC) | payer OTHER ==
[2023-01-11 13:46] VITALS: BMI 35.3
[2023-01-18] MEDS ORDERED: PROMETHAZINE HCL 25 MG/1 ML VIAL IVPB PRN (08:22)
[2023-01-18] MEDS ORDERED: ONDANSETRON 4 MG/2 ML VIAL IVPUSH PRN (08:22)
[2023-01-18] MEDS ORDERED: oxyCODONE HCL 5 MG TABLET PO PRN (08:22)
[2023-01-18] MEDS ORDERED: LACTATED RINGERS SOLUTION 1,000 ML IV SCH (08:30)
[2023-01-18] MEDS ORDERED: LIDOCAINE HCL 1%, 10 MG/ML (20ML VIAL) ONE (09:02)
[2023-01-18] MEDS ORDERED: MIDAZOLAM HCL 2 MG/2 ML SINGLE DOSE VIAL ONE (09:06)
[2023-01-18] MEDS ORDERED: GLYCOPYRROLATE 0.2 MG/1 ML VIAL ONE (09:07)
[2023-01-18] MEDS ORDERED: SODIUM CHLORIDE 0.9% P/F 10 ML VIAL IJ ONE (09:07)
[2023-01-18] MEDS ORDERED: LIDOCAINE HCL/PF 2% SDV 5ML VIAL ONE (09:07)
[2023-01-18] MEDS ORDERED: ceFAZolin SODIUM 1 GM VIAL ONE (09:07)
[2023-01-18] MEDS ORDERED: DEXAMETHASONE SOD PHOSPHATE 4 MG/1 ML VIAL ONE (09:46)
[2023-01-18] MEDS ORDERED: ONDANSETRON 4 MG/2 ML VIAL ONE ×2 (09:46→11:11)
[2023-01-18] MEDS ORDERED: KETOROLAC TROMETHAMINE 30 MG/1 ML VIAL ONE (09:51)
[2023-01-18] MEDS ORDERED: FENTANYL CITRATE/PF 50 MCG/ML VIAL ONE (10:57)
[2023-01-18] MEDS ORDERED: oxyCODONE HCL 5 MG TABLET ONE (12:12)
[2023-01-18 12:34] VITALS: PULSE 99
[2023-01-18 12:49] VITALS: BP 128/77; RESP 20; TEMP 97.8
== END 2023-01-18 12:49 | disposition home or self-care (01) ==
LOC: FASU 07:53
PROVIDERS: ATTEND Orthopaedic Surgery
PROC: 01N50ZZ Release Median Nerve, Open Approach (ICD-10-PCS; principal; 2023-01-18 09:57)
DX: G56.01 Carpal tunnel syndrome, right upper limb (principal)
CPT/HCPCS: 84703; 94760

== ENCOUNTER 2024-01-17 06:15 | Day surgery (SDC) | payer OTHER ==
[2024-01-09 16:14] VITALS: BMI 35.3
[2024-01-17] MEDS ORDERED: LIDOCAINE HCL 1%, 10 MG/ML (20ML VIAL) ONE (06:54)
[2024-01-17] MEDS ORDERED: LIDOCAINE HCL/PF 2% SDV 5ML VIAL ONE ×2 (06:55→07:39)
[2024-01-17] MEDS ORDERED: MIDAZOLAM HCL 2 MG/2 ML SINGLE DOSE VIAL ONE ×2 (06:55→07:37)
[2024-01-17] MEDS ORDERED: PROPOFOL 20 ML ONE ×3 (06:55→07:37)
[2024-01-17] MEDS ORDERED: ceFAZolin SODIUM 1 GM VIAL ONE (07:43)
[2024-01-17] MEDS ORDERED: DEXAMETHASONE SOD PHOSPHATE 4 MG/1 ML VIAL ONE (07:46)
[2024-01-17] MEDS ORDERED: ONDANSETRON 4 MG/2 ML VIAL ONE (08:00)
[2024-01-17] MEDS ORDERED: oxyCODONE HCL 5 MG TABLET PO PRN ×2 (08:27)
[2024-01-17] MEDS ORDERED: ONDANSETRON 4 MG/2 ML VIAL IVPUSH PRN (08:27)
[2024-01-17] MEDS ORDERED: LACTATED RINGERS SOLUTION 1,000 ML IV SCH (08:30)
[2024-01-17] MEDS: ACETAMINOPHEN 1000 MG/100 ML BAG IVPB ONE (08:45)
[2024-01-17] MEDS ORDERED: FENTANYL CITRATE/PF 50 MCG/ML VIAL ONE ×2 (08:53→09:04)
[2024-01-17 09:03] VITALS: TEMP 98
[2024-01-17 10:57] VITALS: PULSE 84; RESP 20
[2024-01-17 10:59] VITALS: BP 126/70
== END 2024-01-17 10:59 | disposition home or self-care (01) ==
LOC: FASU 06:15
PROVIDERS: ATTEND Orthopaedic Surgery
PROC: 01N50ZZ Release Median Nerve, Open Approach (ICD-10-PCS; principal; 2024-01-17 07:55)
DX: G56.02 Carpal tunnel syndrome, left upper limb (principal)
CPT/HCPCS: 81025; 94760; J0131

== ENCOUNTER 2024-02-28 04:30 | Day surgery (SDC) | payer OTHER ==
[2024-02-20 14:44] VITALS: BMI 36.9
[2024-02-28] MEDS ORDERED: LIDOCAINE HCL/PF 2% SDV 5ML VIAL ONE (07:29)
[2024-02-28] MEDS ORDERED: BUPIVACAINE HCL/PF 0.75% 10 ML VIAL ONE (07:29)
[2024-02-28] MEDS ORDERED: ACETAMINOPHEN 500 MG TABLET (FP) PO PRN (10:35)
[2024-02-28 13:28] VITALS: TEMP 97.8
[2024-02-28] MEDS: BUPIVACAINE HCL/PF 0.75% 10 ML VIAL NR ONE (14:55)
[2024-02-28] MEDS: LIDOCAINE HCL 1% PRESERVATIVE FREE - 30ML VIAL IJ ONE (14:55)
[2024-02-28 15:49] VITALS: BP 129/69; PULSE 89; RESP 18
== END 2024-02-28 15:26 | disposition home or self-care (01) ==
LOC: JASU-SURG 04:30
PROVIDERS: ATTEND Pain Medicine Pain Medicine
PROC: 3E0T33Z Introduction of Anti-inflammatory into Peripheral Nerves and Plexi, Percutaneous Approach (ICD-10-PCS; 2024-02-28)
PROC: 3E0T3BZ Introduction of Anesthetic Agent into Peripheral Nerves and Plexi, Percutaneous Approach (ICD-10-PCS; principal; 2024-02-28 15:00)
DX: M47.816 Spondylosis without myelopathy or radiculopathy, lumbar region (principal)
CPT/HCPCS: 76000-TC-FY; 81025

== ENCOUNTER 2024-03-27 04:07 | Day surgery (SDC) | payer OTHER ==
[2024-03-24 16:37] VITALS: BMI 36.9
[2024-03-27] MEDS ORDERED: LIDOCAINE HCL/PF 1% SDV 5ML VIAL ONE (07:07)
[2024-03-27] MEDS ORDERED: BUPIVACAINE HCL/PF 0.75% 10 ML VIAL ONE (07:07)
[2024-03-27 08:19] VITALS: RESP 18
[2024-03-27] MEDS: LIDOCAINE HCL 1% PRESERVATIVE FREE - 30ML VIAL IJ ONE (09:48)
[2024-03-27] MEDS: BUPIVACAINE HCL/PF 0.75% 10 ML VIAL NR ONE ×2 (09:53)
[2024-03-27 10:18] VITALS: BP 113/67; PULSE 84; TEMP 97.3
[2024-03-27] MEDS ORDERED: ACETAMINOPHEN 500 MG TABLET (FP) PO PRN (11:23)
== END 2024-03-27 10:30 | disposition home or self-care (01) ==
LOC: JASU-SURG 04:07
PROVIDERS: ATTEND Pain Medicine Pain Medicine
PROC: 3E0T33Z Introduction of Anti-inflammatory into Peripheral Nerves and Plexi, Percutaneous Approach (ICD-10-PCS; 2024-03-27)
PROC: 3E0T3BZ Introduction of Anesthetic Agent into Peripheral Nerves and Plexi, Percutaneous Approach (ICD-10-PCS; principal; 2024-03-27 09:45)
DX: M47.816 Spondylosis without myelopathy or radiculopathy, lumbar region (principal)
CPT/HCPCS: 76000-TC-FY; 81025

== ENCOUNTER 2024-05-01 04:44 | Day surgery (SDC) | payer OTHER ==
[2024-04-23 11:10] VITALS: BMI 36.9
[2024-05-01] MEDS ORDERED: BUPIVACAINE HCL/PF 0.75% 10 ML VIAL ONE (07:16)
[2024-05-01] MEDS ORDERED: DEXAMETHASONE SOD PHOSPHATE 10 MG/1 ML VIAL ONE (07:16)
[2024-05-01] MEDS ORDERED: LIDOCAINE HCL/PF 1% SDV 5ML VIAL ONE (07:16)
[2024-05-01] MEDS ORDERED: ACETAMINOPHEN 500 MG TABLET (FP) PO PRN (10:18)
[2024-05-01 12:14] VITALS: RESP 20; TEMP 98.2
[2024-05-01] MEDS: DEXAMETHASONE SOD PHOSPHATE 20 MG/5 ML VIAL IM ONE (15:02)
[2024-05-01] MEDS: BUPIVACAINE HCL/PF 0.75% 10 ML VIAL NR ONE ×2 (15:02)
[2024-05-01] MEDS: LIDOCAINE HCL 1% PRESERVATIVE FREE - 30ML VIAL IJ ONE ×2 (15:02)
[2024-05-01] MEDS: BUPIVACAINE HCL/PF 0.5% (5MG/ML) 10 ML VIAL IJ ONE ×2 (15:02)
[2024-05-01 15:34] VITALS: BP 139/78; PULSE 100
== END 2024-05-01 15:29 | disposition home or self-care (01) ==
LOC: JASU-SURG 04:44
PROVIDERS: ATTEND Pain Medicine Pain Medicine
PROC: 015B3ZZ Destruction of Lumbar Nerve, Percutaneous Approach (ICD-10-PCS; principal; 2024-05-01 16:00)
DX: M47.816 Spondylosis without myelopathy or radiculopathy, lumbar region (principal)
CPT/HCPCS: 76000-TC-FY; 81025; J1100

== ENCOUNTER 2024-06-05 04:26 | Day surgery (SDC) | payer OTHER ==
[2024-06-03 10:40] VITALS: BMI 37.5
[2024-06-05] MEDS: LIDOCAINE 1% P/F 10 MG/ML VIAL PNB ONE
[2024-06-05] MEDS ORDERED: ACETAMINOPHEN 500 MG TABLET (FP) PO PRN (08:52)
[2024-06-05 11:56] VITALS: RESP 18
[2024-06-05] MEDS: DEXAMETHASONE SOD PHOSPHATE 10 MG/1 ML VIAL IVPUSH ONE ×2 (14:23)
[2024-06-05] MEDS: BUPIVACAINE 0.75% IN DEXTROSE/PF 2ML AMPULE NR ONE ×2 (14:23)
[2024-06-05] MEDS: LIDOCAINE HCL 1% PRESERVATIVE FREE - 30ML VIAL PNB ONE ×2 (14:23)
[2024-06-05 15:18] VITALS: BP 105/61; PULSE 79; TEMP 97.7
== END 2024-06-05 15:03 | disposition home or self-care (01) ==
LOC: JASU-SURG 04:26
PROVIDERS: ATTEND Pain Medicine Pain Medicine
PROC: 015B3ZZ Destruction of Lumbar Nerve, Percutaneous Approach (ICD-10-PCS; principal; 2024-06-05 13:15)
DX: M47.816 Spondylosis without myelopathy or radiculopathy, lumbar region (principal)
CPT/HCPCS: 76000-TC-FY; 81025; J1100

== ENCOUNTER 2024-08-24 07:02 | Day surgery (SDC) | payer OTHER ==
[2024-08-17 14:11] VITALS: BMI 38.3
[2024-08-24] MEDS ORDERED: ROPIVACAINE HCL 0.5% 30ML VIAL ONE (07:11)
[2024-08-24] MEDS ORDERED: LIDOCAINE HCL/PF 2% SDV 5ML VIAL ONE (07:17)
[2024-08-24] MEDS ORDERED: PROPOFOL 20 ML ONE ×2 (07:17→08:11)
[2024-08-24] MEDS ORDERED: MIDAZOLAM HCL 2 MG/2 ML SINGLE DOSE VIAL ONE ×2 (07:17→08:11)
[2024-08-24] MEDS ORDERED: BUPIVACAINE HCL/PF 0.25% (2.5MG/ML) 10 ML VIAL ONE ×2 (07:25→09:57)
[2024-08-24] MEDS ORDERED: ONDANSETRON 4 MG/2 ML VIAL IVPUSH PRN (07:43)
[2024-08-24] MEDS ORDERED: LACTATED RINGERS SOLUTION 1,000 ML IV SCH (07:45)
[2024-08-24] MEDS ORDERED: SUCCINYLCHOLINE CHLORIDE 200 MG/10 ML SYRINGE ONE (08:11)
[2024-08-24] MEDS ORDERED: ROCURONIUM BROMIDE 50 MG/5 ML SYRINGE ONE (08:11)
[2024-08-24] MEDS ORDERED: NEOSTIGMINE METHYLSULFATE 0.5 MG/1 ML - 10 ML MDV ONE (09:37)
[2024-08-24] MEDS ORDERED: THROMBIN (BOVINE) 5,000 UNIT VIAL TP ONE (09:40)
[2024-08-24] MEDS: BUPIVACAINE HCL/PF 0.25% (2.5MG/ML) 10 ML VIAL IJ ONE (09:56)
[2024-08-24] MEDS ORDERED: FENTANYL CITRATE/PF 50 MCG/ML VIAL ONE (10:43)
[2024-08-24] MEDS: ACETAMINOPHEN 1000 MG/100 ML BAG IVPB ONE (10:56)
[2024-08-24] MEDS ORDERED: oxyCODONE HCL 5 MG TABLET ONE (11:35)
[2024-08-24] MEDS: oxyCODONE HCL 5 MG TABLET PO PRN (11:40)
[2024-08-24 11:47] VITALS: TEMP 97.7
[2024-08-24 11:50] VITALS: RESP 20
[2024-08-24 12:06] VITALS: BP 117/63; PULSE 87
== END 2024-08-24 13:28 | disposition home or self-care (01) ==
LOC: FASU 07:02
PROVIDERS: ATTEND Orthopaedic Surgery
PROC: 01N40ZZ Release Ulnar Nerve, Open Approach (ICD-10-PCS; 2024-08-24)
PROC: 0RBM0ZZ Excision of Left Elbow Joint, Open Approach (ICD-10-PCS; principal; 2024-08-24 09:03)
DX: M77.12 Lateral epicondylitis, left elbow (principal); M67.822 Other specified disorders of synovium, left elbow; G56.22 Lesion of ulnar nerve, left upper limb
CPT/HCPCS: 81025; 94760; J0131

== ENCOUNTER 2025-04-30 06:48 | Day surgery (SDC) | payer OTHER ==
[2025-04-30 11:14] VITALS: RESP 18; TEMP 98.1
[2025-04-30 11:22] VITALS: BP 117/72; PULSE 78
[2025-04-30] MEDS ORDERED: ACETAMINOPHEN 500 MG TABLET (FP) PO PRN (15:42)
== END 2025-04-30 10:35 | disposition home or self-care (01) ==
LOC: JASU-SURG 06:48
PROVIDERS: ATTEND Pain Medicine Pain Medicine
PROC: 015B3ZZ Destruction of Lumbar Nerve, Percutaneous Approach (ICD-10-PCS; principal; 2025-04-30 09:47)
DX: M47.816 Spondylosis without myelopathy or radiculopathy, lumbar region (principal)
CPT/HCPCS: 76000-TC-FY

== ENCOUNTER 2025-07-11 10:01 | Emergency (ER) | payer OTHER ==
[2025-07-11 10:09] VITALS: RESP 18; TEMP 98.6; BMI 37.5
[2025-07-11] MEDS ORDERED: ACETAMINOPHEN INJECTION 100 ML ONE (10:33)
[2025-07-11] MEDS: ACETAMINOPHEN 1000 MG/100 ML BAG IVPB ONE (10:51)
[2025-07-11 11:13] LABS: ABSOLUTE IMMATURE GRANULOCYTES 0.04 x10^3/uL (0.0-0.031); BASOPHILS # 0.03 x10^3/uL (0.01-0.08); EOSINOPHIL % 1.4 % (0.7-5.8); EOSINOPHILS # 0.13 x10^3/uL (0.04-0.36); MCHC 31.0 g/dl (32.2-35.5); MEAN CELL VOLUME 85.6 fl (79.4-94.8); MEAN PLT VOLUME 10.6 fl (9.4-12.3); MONOCYTE # 0.64 x10^3/uL (0.24-0.86); MONOCYTE % 6.9 % (4.7-12.5); RDW 14.2 % (12.2-17.1)
[2025-07-11 11:37] LABS: GLUCOSE,RANDOM 123.0 mg/dL (74-106)
[2025-07-11 11:38] LABS: TOT PROT 7.2 g/dl (6.4-8.2)
[2025-07-11 11:39] LABS: CO2 23.0 mmol/L (21-32)
[2025-07-11 11:40] LABS: ALK PHOS 124.0 U/L (40-150)
[2025-07-11 11:43] LABS: CREATININE 0.74 mg/dL (0.55-1.3); SGOT/AST 21.0 U/L (5-34); SGPT/ALT 15.0 U/L (0-55)
[2025-07-11 11:58] VITALS: BP 109/74; PULSE 78
[2025-07-11 15:33] LABS: HCV DIAGNOSTIC IN-HOUSE W/RFLX NON-REACTIVE (NONREACTIVE); HIV INTERPRETATION NEGATIVE (NEGATIVE)
== END 2025-07-11 11:59 | disposition home or self-care (01) ==
LOC: JER 10:01
PROC: 3E033NZ Introduction of Analgesics, Hypnotics, Sedatives into Peripheral Vein, Percutaneous Approach (ICD-10-PCS; principal; 2025-07-11)
DX: N93.9 Abnormal uterine and vaginal bleeding, unspecified (principal); R10.2 Pelvic and perineal pain
CPT/HCPCS: 36415; 80053; 84703; 85025; 86803; 86850; 86900; 86901; 87389; 99284-25